=== PATIENT | male | born 1995 | race Caucasian/White ===

== ENCOUNTER 2016-07-16 17:31 | Emergency (ER) | payer OTHER ==
[~2016-07-16] VITALS: Ht 172.7 cm; Wt 71.4 kg
[2016-07-16 17:39] VITALS: TEMP 37.3; Ht 172.7 cm; Wt 71.4 kg
[2016-07-16] MEDS ORDERED: XYLOCAINE 1%/SOD BICARB 20 ML VIAL INFIL ONE (18:15)
[2016-07-16 18:57] VITALS: BP 126/80; PULSE 79; O2SAT 99
--- NOTE | 2016-07-17 01:51 | EMERGENCY ROOM VISIT NOTE ---
ED Visit Note First contact with patient: 17:47 Chief Complaint: I cut my right middle finger while taking out the trash. History of Present Illness: Mr. Jacobo is a 21-year-old white male who ambulates into the ED complaining of a laceration to the anterior aspect of the distal phalanx of the right middle finger. Patient reports less than an hour ago he was taking out trash and accidentally cut his finger on a piece of glass. She control bleeding but did not wash the wound. Associated with his laceration he reports he is having a stinging pain in the finger. He rates his discomfort 3/10. Pain is nonradiating. The pain worsens with palpation. He has not identified any alleviating factors related to the pain. He has not taken any medication for pain prior to arrival at the hospital. He denies any associated symptoms with his pain including finger weakness/numbness/tingling. Review of Systems: As noted above in history of present illness. Past Medical History: Patient denies. Current Medications: Patient denies. Allergies to Medications: Amoxicillin. Social History: Patient is University student; he feels safe in his home environment; he denies tobacco use. Tetanus Immunization Status: Patient reports up-to-date. Physical Examination: Vital Signs: Date Time Temp Pulse Resp B/P Pulse Ox O2 Delivery O2 Flow Rate FiO2 07/16/16 18:57 79 18 126/80 99 Room Air 07/16/16 18:53 82 18 122/81 98 07/16/16 17:39 37.3 90 18 137/89 98 Room Air GENERAL: 21-year-old male in mild distress due to pain, nontoxic-appearing, afebrile and hemodynamically stable. NEUROLOGICAL: Awake, alert and oriented to person, place and time. Answering questions appropriately and following commands. SKIN: Warm, dry and pink. Right Middle Finger: Over the finger pad of the distal phalanx patient has a chevron-shaped full-thickness laceration measuring approximately 1.6 cm. No active bleeding. RIGHT INDEX FINGER: Soft tissue injury as noted above. No gross bony deformity. Full range of motion in flexion and extension of the MCP, PIP and DIP joints. Throughout the finger the skin was warm and pink and capillary refill is brisk. Patient was able to distinguish light sensations through all dermatomes of the finger. ED Course: Patient is assessed as noted above. Wound Repair: Complexity: Basic Verbal consent was obtained after the risks and benefits were explained. The skin was prepped with betadine and a sterile field set. Wound edges of the wound was anesthetized with 0.9 ml buffered 1% lidocaine. The wound was explored for foreign bodies and none found. Copious irrigation was performed using sterile saline. With direct pressure the bleeding subsided. Debridement was not performed. The wound edges were approximated using 5-0 Ethilon with 3 simple interrupted sutures. Hemostasis and excellent approximation was achieved. Antibacterial ointment and a sterile dressing applied. No complications and the patient tolerated the procedure well. Patient was educated about tonight's findings and instructed on his treatment plan; he verbalizes understanding and agreement with this plan. Clinical Impression: Laceration of the right middle finger. Disposition: Patient discharged home in stable condition; prior to departure he was reassessed and subjectively reported he was pain-free Plan: Comfort measures, wound care, and signs of infection were discussed with the patient. Patient was encouraged to follow-up with [facility] or return to the ED for signs of infection and/or suture removal in 10-12 days.
== END 2016-07-16 18:54 | disposition home or self-care (01) ==
LOC: C.EDB 17:32 → C.EDD 18:54
DX: S61.212A Laceration without foreign body of right middle finger without damage to nail, initial encounter (principal); W25.XXXA Contact with sharp glass, initial encounter

== ENCOUNTER 2016-07-26 09:28 | Emergency (ER) | payer OTHER ==
[~2016-07-26] VITALS: Ht 172.7 cm; Wt 70.1 kg
[2016-07-26 09:40] VITALS: BP 117/76; PULSE 69; TEMP 37; O2SAT 98; Ht 172.7 cm; Wt 70.1 kg
--- NOTE | 2016-07-26 09:55 | EMERGENCY ROOM VISIT NOTE ---
ED Visit Note First contact with patient: 09:53 CHIEF COMPLAINT: Suture removal HISTORY OF PRESENT ILLNESS: This 21-year-old male patient returns to the ED today for removal of sutures that were placed 9 days ago. There has been no swelling, redness, or drainage from the wound. The patient feels like the laceration is healing well. REVIEW OF SYSTEMS: A 6 system review of systems was completed with positives and pertinent negatives listed in the HPI. PMH: Unchanged from previous visit. ALLERGIES: Amoxicillin PHYSICAL EXAM: Vital Signs: Reviewed Nurse's notes, vital signs stable. GENERAL : This is a 21-year-old male, in no acute distress. SKIN: There is a sutured wound on the finger with no signs of infection. There is no erythema, swelling , or tenderness. EMERGENCY DEPARTMENT COURSE: 3 sutures were removed without any difficulty and there was no separation of the wound edges. The patient was discharged home in good condition. DIAGNOSIS: Healing laceration and suture removal DISCHARGE INSTRUCTIONS AND TREATMENT: Wash any remaining crusts off of the wound today and resume your normal activities. Current/Historical Medications No Active Prescriptions or Reported Meds Allergies Coded Allergies: Amoxicillin (Verified Allergy, Intermediate, HIVES, 07/16/16) Vital Signs Date Time Temp Pulse Resp B/P Pulse Ox O2 Delivery O2 Flow Rate FiO2 07/26/16 09:40 37.0 69 16 117/76 98 Room Air Departure Information Impression Primary Impression: Encounter for removal of sutures Dispostion Home / Self-Care Condition GOOD Prescriptions No Active Prescriptions or Reported Meds Referrals [facility] (PCP) Patient Instructions My [facility] [address] Additional Instructions Wash any remaining crusts off of the wound today and resume your normal activities.
== END 2016-07-26 10:01 | disposition home or self-care (01) ==
LOC: C.EDB 09:29 → C.EDA 10:01
DX: Z48.02 Encounter for removal of sutures (principal)